=== PATIENT | female | born 1960 | race Caucasian/White ===

== ENCOUNTER 2020-05-21 15:04 | Emergency (ER) | payer OTHER ==
[~2020-05-21] VITALS: Ht 160 cm; Wt 90.7 kg
[~2020-05-21 15:04] MED LIST: AZITHROMYCIN 2250 MG PO; DUONEB 2.5-0.5 M3 ML INH; FLONASE 0.05%50 MCG NASAL; IRON SUPPLEMENT; ZOLOFT100 MG PO
[2020-05-21 15:32] LABS: HEMATOCRIT 42.4 % (37.0-47.0); HEMOGLOBIN 14.3 gm/dL (12.0-15.0); MCH 29.9 pg (26.0-34.0); MCHC 33.7 g/dL (28.0-37.0); MCV 88.6 fL (80.0-100.0); MPV 7.2 fl. (7.2-11.1); RBC 4.78 mil/uL (4.20-5.00); RDW-CV 14.4 % (10.5-14.5); WBC 9.8 thou/uL (4.0-11.0)
[2020-05-21 15:44] LABS: CALCIUM 9.5 mg/dL (8.5-10.1); CREATININE 1.2 mg/dL (0.6-1.3); POTASSIUM 3.5 mmol/L (3.5-5.1)
[2020-05-21 15:47] LABS: ALBUMIN 3.4 g/dL (3.4-5.0); TOTAL BILIRUBIN 0.2 mg/dL (<0.1-1.0); TOTAL PROTEIN 7.8 g/dL (6.4-8.2)
[2020-05-21 16:22] VITALS: BP 119/71
--- NOTE | 2020-05-22 09:33 | EKG ---
[place] [address] ELECTROCARDIOGRAM REPORT Name: CLAUDIA BOUCHER Room: [facility]#: [id number] Admission: 05/21/20 Attend Phys: Discharge: 05/21/20 Date of : 64 Date of Service: 05/21/20 1519 Report #: [id number] THIS REPORT FOR: //name// [facility] ED Test Date: 2020-05-21 Test Time: 15:19:10 Pat Name: CLAUDIA BOUCHER Department: Room: Gender: Warehouse Receiving Supervisor: : 1960 Requested By: Felicia Nj Order Number: [id number] MD: Isaiah Vigil Measurements Intervals [place] Rate: 195 P: 0 [place]: 83 QRS: 37 QRSD: 72 T: 183 QT: 209 QTc: 377 Interpretive Statements Supraventricular tachycardia Repolarization abnormality, prob rate related Compared to ECG 12/26/2011 15:59:41 Early repolarization now present Sinus rhythm no longer present Electronically Signed On 05-22-2020 9:32:53 ELECTRICIAN FRONT by Isaiah Vigil [email or web address] <ELECTRONICALLY SIGNED> By: Isaiah Vigil MD, FACC 05/22/20 0932 1519 1519 Isaiah Vigil MD, FAC /EPI
--- NOTE | 2020-05-22 09:33 | EKG ---
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 : 1960 Requested By: Francine Desir Order Number: [id number] MD: Isaiah Vigil Measurements Intervals [place] Rate: 94 P: 58 [place]: 124 QRS: 19 QRSD: 80 T: 53 QT: 353 QTc: 442 Interpretive Statements Sinus rhythm Low voltage, precordial leads Compared to ECG 05/21/2020 15:19:10 Low QRS voltage now present Supraventricular tachycardia no longer present Early repolarization no longer present Electronically Signed On 05-22-2020 9:33:01 LACE P[employer]ER MACHINE OPERATOR by Isaiah Vigil [email or web address] <ELECTRONICALLY SIGNED> By: Isaiah Vigil MD, FACC 05/22/20 0933 1528 1528 Isaiah Vigil MD, FAC /EPI
== END 2020-05-21 16:23 | disposition home or self-care (01) ==
LOC: M.ERS 15:04
PROVIDERS: Personal Emergency Response Attendant
DX: I47.1 Supraventricular tachycardia (principal); J45.909 Unspecified asthma, uncomplicated; Z88.2 Allergy status to sulfonamides